=== PATIENT | male | born 1955 | race Caucasian/White ===

== ENCOUNTER 2017-05-06 12:54 | Day surgery (SDC) | payer OTHER ==
[2017-04-28 12:01] VITALS: BMI 21.2
[~2017-05-06 12:54] MED LIST: DEXAMETHASONE SOD PHOSPHATE 10 MG/ML 1 ML VIAL IV ONE; LIDOCAINE 1% 20 ML VIAL (10MG/ML) FOR IV START INTRADERMA PRN; MIDAZOLAM 2 MG/2 ML VIAL IV PRN; ONDANSETRON 4 MG/2 ML VIAL IVP ONE; ceFAZolin IN SWFI 2 GM/20 ML SYRINGE IVP ONE
[2017-05-06] MEDS: LACTATED RINGERS 1,000 ML IV SCH (13:03)
[2017-05-06 13:23] LABS: Basophils % (A) 1 %; Eosinophils # (A) 0.3 k/uL (0-0.7); Eosinophils % (A) 3 %; HCT 50.6 % (39.0-53.0); HGB 16.6 gm/dL (13.0-17.5); Lymphocytes # (A) 1.9 k/uL (1.0-4.8); Lymphocytes % (A) 23 %; MCH 33.5 pg (25.0-35.0); MCHC 32.8 g/dL (31.0-37.0); MCV 102.1 fL (80.0-100.0); Mean Platelet Volume 7.2; Monocytes # (A) 0.4 k/uL (0-1.0); Monocytes % (A) 5 %; Neutrophils # (A) 5.5 k/uL (1.3-7.7); Neutrophils % (A) 67 %; Platelet Count 196 k/uL (150-450); RBC 4.96 m/uL (4.30-5.90); RDW 12.3 % (11.5-15.5); WBC 8.2 k/uL (3.8-10.6)
[2017-05-06 13:34] LABS: Anion Gap 9 mmol/L; Blood Urea Nitrogen 14 mg/dL (9-20); Calcium 10.2 mg/dL (8.4-10.2); Carbon Dioxide 30 mmol/L (22-30); Chloride 103 mmol/L (98-107); Glucose 95 mg/dL (74-99); Potassium 4.5 mmol/L (3.5-5.1); Sodium 142 mmol/L (137-145)
[2017-05-06] MEDS ORDERED: PROPOFOL 10 MG/ML 20 ML VIAL IV ONE (13:59)
[2017-05-06] MEDS ORDERED: NEOSTIGMINE 1 MG/ML 10 ML VIAL ONE (13:59)
[2017-05-06] MEDS ORDERED: PHENYLEPHRINE-0.9% NACL SYG 1 MG/10 ML SYRINGE ONE (13:59)
[2017-05-06] MEDS ORDERED: fentaNYL (PF) 50 MCG/ML 2 ML AMP ONE (13:59)
[2017-05-06] MEDS ORDERED: MIDAZOLAM 2 MG/2 ML VIAL ONE (13:59)
[2017-05-06] MEDS ORDERED: GLYCOPYRROLATE 0.2 MG/ML 2 ML VIAL ONE (13:59)
[2017-05-06] MEDS ORDERED: LIDOCAINE 1% INJ 10MG/ML (20 ML MDV) ONE (13:59)
[2017-05-06] MEDS ORDERED: KETOROLAC 30 MG/ML 1 ML VIAL ONE (13:59)
[2017-05-06] MEDS ORDERED: ROCURONIUM BROMIDE 10 MG/ML 10 ML VIAL IV ONE (13:59)
[2017-05-06] MEDS ORDERED: SUCCINYLCHOLINE CHLORIDE 100 MG/5 ML SYR IV ONE (13:59)
[2017-05-06] MEDS ORDERED: BUPIVACAINE (PF) 0.25% 30 ML VIAL SQ ONE (14:24)
[2017-05-06] MEDS ORDERED: LACTATED RINGERS 1,000 ML IV ONE (15:52)
[2017-05-06 16:18] VITALS: TEMP 96.9
[2017-05-06] MEDS: HYDROmorphone 0.5 MG/0.5 ML SYRINGE IVP PRN ×4 (16:24→16:41)
[2017-05-06 17:16] VITALS: RESP 16
[2017-05-06] MEDS ORDERED: HYDROcodone/APAP 7.5-325MG 1 EACH TAB PO ONE (17:20)
[2017-05-06 17:42] VITALS: BP 125/80; PULSE 78
--- NOTE | 2017-05-06 21:37 | OP ---
OPERATIVE REPORT DATE OF SERVICE: 05/06/17 PREOP DIAGNOSIS: Bilateral inguinal hernia. POSTOP: Bilateral direct inguinal hernia. PROCEDURE: Bilateral inguinal herniorrhaphy, robotic. ANESTHESIA: General. BLOOD LOSS: Minimal. COMPLICATIONS: None. SPECIMEN: None. GROSS FINDINGS: The patient is a 61-year-old man presents for repair of symptomatic inguinal hernias. He is taken to the OR, where he was prepped and draped in the usual sterile manner under general endotracheal anesthetic. A supraumbilical incision was made. Veress needle was placed into the abdominal cavity. Pneumoperitoneum was established with CO2 gas. Sites were chosen for accessary trocars and these were placed through small stab incisions. The abdominal pelvic contents were examined with findings of bilateral direct inguinal hernias. He also had sigmoid diverticulosis. Otherwise the liver, diaphragm large and small-bowel were where they were seen. Starting on the left side the peritoneum overlying the inguinal canal was opened sharply with scissors. Small bleeding points were controlled with electrocautery. The peritoneum was then dissected free off the inguinal canal using blunt dissection. Small bleeding points were controlled with electrocautery. Dissection was carried off the inferior epigastric vessels and it was proceeded medially. There was a direct hernia sac which is dissected free and reduced. The peritoneum was dissected off the cord and cord structures to well beyond the bifurcation. The procedure was completed in a similar manner on the right side. A mesh was then placed into the abdominal cavity and was unfurled so it gave good coverage of all potential hernia defect areas. Once it was adequately positioned, and was adhering well, the peritoneum was closed with B-loc suture. There was a small peritoneal rent on the right side. The peritoneum was very thin. The hernia sac was sutured over top of this with 3-0 Vicryl to cover the peritoneal defect from potential encounter with the bowel. The pneumoperitoneum was then released. The trocars were removed. The fascia at the umbilicus was closed with 0-Vicryl. The skin incisions were closed with 4-0 Vicryl in a subcuticular manner. Steri-Strips and dressings were applied. He tolerated the procedure without difficulty and was taken recovery room in satisfactory condition. According to OR personnel. All counts were correct. DISCHARGE FOLLOW UP: He will be discharged home with a regular diet. Given a prescription for Vicodin for pain 5/325, #30, 1-2 every 6 as needed. Follow up with Dr. Moy in the office in 2 weeks. MMODL / IJN: [id number] /
== END 2017-05-06 17:57 | disposition home or self-care (01) ==
LOC: OR 12:54
PROVIDERS: ATTEND Surgery
DX: K40.20 Bilateral inguinal hernia, without obstruction or gangrene, not specified as recurrent (principal); D12.6 Benign neoplasm of colon, unspecified; J44.9 Chronic obstructive pulmonary disease, unspecified; F03.90 Unspecified dementia, unspecified severity, without behavioral disturbance, psychotic disturbance, mood disturbance, and anxiety; M41.9 Scoliosis, unspecified; Z80.9 Family history of malignant neoplasm, unspecified; F17.210 Nicotine dependence, cigarettes, uncomplicated; Z79.899 Other long term (current) drug therapy
CPT/HCPCS: 93005; 80048; 85025; 49650; C1781; J2250; J1100; J2710; J2405; J2001; J3010; J1885; J2370; J0330; J2704; J1170; J0690

== ENCOUNTER 2019-01-19 11:08 | Emergency (ER) | payer OTHER ==
[2019-01-19 11:36] VITALS: RESP 18; TEMP 97.9
--- NOTE | 2019-01-19 12:23 | ED ---
General Adult HPI - General Chief complaint: Skin/Abscess/Foreign Body Stated complaint: facial swelling/rectal bleeding Time Seen by Provider: 01/19/19 11:39 Source: patient, RN notes reviewed, old records reviewed Mode of arrival: ambulatory Limitations: no limitations - History of Present Illness Initial comments: Patient's a 63-year-old male presents emergency department today with 1 month of diffuse rash over his entire body. Reportedly was sitting primary care doctor, was prescribed cream. Patient reports the rash is not getting any better. They were told that it's psoriasis. Patient reports it is pruritic as thickened skin. Patient reports he describes of the skin and has caused bleeding. Patient states that he's also had some bilateral lower extremity swelling, complains of chronic shortness of breath with history history of COPD. Denies any specific chest pains. He denies any pain at all besides his skin itching and hurting. He states that he has now had a broken skin over his buttocks. - Related Data Home Medications Medication Instructions Recorded Confirmed Ibuprofen [Motrin] 800 mg PO TID PRN 04/02/17 01/19/19 Previous Rx's Medication Instructions Recorded HYDROcodone/APAP 5-325MG [[place] 1 - 2 tab PO Q4H PRN #30 tab 05/06/17 5-325] Albuterol Inhaler [Ventolin Hfa 1 - 2 puff INHALATION RT-Q6H PRN 01/19/19 Inhaler] #1 inhaler Cephalexin [Keflex] 500 mg PO Q6HR #28 cap 01/19/19 Hydrocortisone Cream 1 applic TOPICAL QID #60 gm 01/19/19 [Hydrocortisone 1% Cream] predniSONE 10 mg PO DAILY #15 tab 01/19/19 Allergies Allergy/AdvReac Type Severity Reaction Status Date / Time No Known Allergies Allergy Verified 01/19/19 11:54 Review of Systems ROS Statement: Those systems with pertinent positive or pertinent negative responses have been documented in the HPI. ROS Other: All systems not noted in ROS Statement are negative. Past Medical History Past Medical History: COPD, Memory Impairment, Osteoarthritis (OA) Additional Past Medical History / Comment(s): BILAT GROIN HERNIA. SCOLIOSIS History of Any Multi-Drug Resistant Organisms: None Reported Additional Past Surgical History / Comment(s): THYROID NODULES REMOVED; COLONOSCOPY Past Anesthesia/Blood Transfusion Reactions: No Reported Reaction Past Psychological History: Depression Smoking Status: Current every day smoker Past Alcohol Use History: Daily, Heavy Past Drug Use History: None Reported - Past Family History Mother Family Medical History: Cancer General Exam - General Exam Comments Initial Comments: 63 year old male, no distress. Limitations: no limitations General appearance: alert, in no apparent distress Head exam: Present: atraumatic, normocephalic, normal inspection Eye exam: Present: normal appearance, PERRL, EOMI. Absent: scleral icterus, conjunctival injection, periorbital swelling Neck exam: Present: normal inspection. Absent: tenderness, meningismus, lymphadenopathy Respiratory exam: Present: normal lung sounds bilaterally. Absent: respiratory distress, wheezes, rales, rhonchi, stridor Cardiovascular Exam: Present: regular rate, normal rhythm, normal heart sounds. Absent: systolic murmur, diastolic murmur, rubs, gallop, clicks GI/Abdominal exam: Present: soft, normal bowel sounds. Absent: distended, tenderness, guarding, rebound, rigid Extremities exam: Present: normal inspection, full ROM, normal capillary refill, other (rash over legs and arms. 1 plus pitting edema bilaterally. ). Absent: tenderness, pedal edema, joint swelling, calf tenderness Back exam: Present: normal inspection Neurological exam: Present: alert, oriented X3, CN II-XII intact Psychiatric exam: Present: normal affect, normal mood Skin exam: Present: warm, dry, intact, normal color, rash (erythematous raised scale like rash over body. Severe eczema. ) Course Vital Signs 01/19/19 01/19/19 11:32 13:46 Temperature 97.9 F Pulse Rate 74 81 Respiratory 18 18 Rate Blood Pressure 123/67 142/80 O2 Sat by Pulse 91 L 95 Oximetry Medical Decision Making - Medical Decision Making 63 year old male presents with diffuse rash for one month over entire body. Patient skin is cracked, thickened, scaley, and appears to have diffuse atopic dermatiits. Some excoriations are noted, with likely overliying cellulitis. PAtient has not been on oral mediication form PCP at this time. Family is concerned for general health and reports he appears weak. Patient was given IV and labs obtaind. Labs are normal. paitent advised patient can be started on steriods, and keflex to vonver for overlying cellulitis. Patient advised to follow up with PCP. Family reports that they wantto follow up with infectious dissease Dr. Espinoza, but need a referral. - Lab Data Result diagrams: 01/19/19 12:14 01/19/19 12:14 Lab Results 01/19/19 01/19/19 01/19/19 Range/Units 12:14 12:14 12:14 WBC 7.8 (3.8-10.6) k/uL RBC 3.94 L (4.30-5.90) m/uL Hgb 14.5 (13.0-17.5) gm/dL Hct 43.1 (39.0-53.0) % MCV 109.4 H (80.0-100.0) fL MCH 36.9 H (25.0-35.0) pg MCHC 33.8 (31.0-37.0) g/dL RDW 12.2 (11.5-15.5) % Plt Count 191 (150-450) k/uL Neutrophils % 79 % Lymphocytes % 8 % Monocytes % 6 % Eosinophils % 4 % Basophils % 1 % Neutrophils # 6.2 (1.3-7.7) k/uL Lymphocytes # 0.7 L (1.0-4.8) k/uL Monocytes # 0.4 (0-1.0) k/uL Eosinophils # 0.3 (0-0.7) k/uL Basophils # 0.1 (0-0.2) k/uL Macrocytosis Moderate PT (9.0-12.0) sec INR (<1.2) APTT (22.0-30.0) sec Sodium 138 (137-145) mmol/L Potassium 4.7 (3.5-5.1) mmol/L Chloride 103 (98-107) mmol/L Carbon Dioxide 27 (22-30) mmol/L Anion Gap 8 mmol/L BUN 12 (9-20) mg/dL Creatinine 0.90 (0.66-1.25) mg/dL Est GFR (CKD-EPI)AfAm >90 (>60 ml/min/1.73 sqM) Est GFR (CKD-EPI)NonAf 90 (>60 ml/min/1.73 sqM) Glucose 66 L (74-99) mg/dL Calcium 9.3 (8.4-10.2) mg/dL Total Bilirubin 0.5 (0.2-1.3) mg/dL AST 48 (17-59) U/L ALT 32 (21-72) U/L Alkaline Phosphatase 76 (38-126) U/L NT-Pro-B Natriuret Pep 1090 pg/mL Total Protein 8.0 (6.3-8.2) g/dL Albumin 3.9 (3.5-5.0) g/dL Urine Color Urine Appearance (Clear) Urine pH (5.0-8.0) Ur Specific [place] (1.001-1.035) Urine Protein (Negative) Urine Glucose (UA) (Negative) Urine Ketones (Negative) Urine Blood (Negative) Urine Nitrite (Negative) Urine Bilirubin (Negative) Urine Urobilinogen (<2.0) mg/dL Ur Leukocyte Esterase (Negative) 01/19/19 01/19/19 Range/Units 12:50 13:09 WBC (3.8-10.6) k/uL RBC (4.30-5.90) m/uL Hgb (13.0-17.5) gm/dL Hct (39.0-53.0) % MCV (80.0-100.0) fL MCH (25.0-35.0) pg MCHC (31.0-37.0) g/dL RDW (11.5-15.5) % Plt Count (150-450) k/uL Neutrophils % % Lymphocytes % % Monocytes % % Eosinophils % % Basophils % % Neutrophils # (1.3-7.7) k/uL Lymphocytes # (1.0-4.8) k/uL Monocytes # (0-1.0) k/uL Eosinophils # (0-0.7) k/uL Basophils # (0-0.2) k/uL Macrocytosis PT 10.2 (9.0-12.0) sec INR 0.9 (<1.2) APTT 24.4 (22.0-30.0) sec Sodium (137-145) mmol/L Potassium (3.5-5.1) mmol/L Chloride (98-107) mmol/L Carbon Dioxide (22-30) mmol/L Anion Gap mmol/L BUN (9-20) mg/dL Creatinine (0.66-1.25) mg/dL Est GFR (CKD-EPI)AfAm (>60 ml/min/1.73 sqM) Est GFR (CKD-EPI)NonAf (>60 ml/min/1.73 sqM) Glucose (74-99) mg/dL Calcium (8.4-10.2) mg/dL Total Bilirubin (0.2-1.3) mg/dL AST (17-59) U/L ALT (21-72) U/L Alkaline Phosphatase (38-126) U/L NT-Pro-B Natriuret Pep pg/mL Total Protein (6.3-8.2) g/dL Albumin (3.5-5.0) g/dL Urine Color Light Yellow Urine Appearance Clear (Clear) Urine pH 5.5 (5.0-8.0) Ur Specific [place] 1.009 (1.001-1.035) Urine Protein Negative (Negative) Urine Glucose (UA) Negative (Negative) Urine Ketones 1+ H (Negative) Urine Blood Negative (Negative) Urine Nitrite Negative (Negative) Urine Bilirubin Negative (Negative) Urine Urobilinogen <2.0 (<2.0) mg/dL Ur Leukocyte Esterase Negative (Negative) Disposition Clinical Impression: Dermatitis, Chronic obstructive pulmonary disease (COPD) Disposition: HOME SELF-CARE Condition: Good Instructions (If sedation given, give patient instructions): Dermatitis (ED) Additional Instructions: Patient advised to follow-up with primary care doctor and dermatology. Take the steroids and use the antibiotics and cream as prescribed. Return to emergency department if any alarming signs or symptoms occur. Prescriptions: Hydrocortisone Cream [Hydrocortisone 1% Cream] 1 applic TOPICAL QID #60 gm Cephalexin [Keflex] 500 mg PO Q6HR #28 cap predniSONE 10 mg PO DAILY #15 tab Albuterol Inhaler [Ventolin Hfa Inhaler] 1 - 2 puff INHALATION RT-Q6H PRN #1 inhaler PRN Reason: Shortness Of Breath Is patient prescribed a controlled substance at d/c from ED?: No Referrals: Mora Villar MD [STAFF PHYSICIAN] - 1-2 days Navin Gilmore MD [Primary Care Provider] - 1-2 days Michael Espinoza MD [STAFF PHYSICIAN] - 1-2 days Time of Disposition: 14:08
[2019-01-19 12:33] LABS: Basophils # (A) 0.1 k/uL (0-0.2); Basophils % (A) 1 %; Eosinophils # (A) 0.3 k/uL (0-0.7); Eosinophils % (A) 4 %; HCT 43.1 % (39.0-53.0); HGB 14.5 gm/dL (13.0-17.5); Lymphocytes # (A) 0.7 k/uL (1.0-4.8); Lymphocytes % (A) 8 %; MCH 36.9 pg (25.0-35.0); MCHC 33.8 g/dL (31.0-37.0); MCV 109.4 fL (80.0-100.0); Macrocytosis Moderate; Mean Platelet Volume 6.6; Monocytes # (A) 0.4 k/uL (0-1.0); Monocytes % (A) 6 %; Neutrophils # (A) 6.2 k/uL (1.3-7.7); Neutrophils % (A) 79 %; Platelet Count 191 k/uL (150-450); RBC 3.94 m/uL (4.30-5.90); RDW 12.2 % (11.5-15.5); WBC 7.8 k/uL (3.8-10.6)
[2019-01-19 12:44] LABS: ALT 32 U/L (21-72); AST 48 U/L (17-59); African American GFR (CKD) >90 (>60 ml/min/1.73 sqM); Albumin 3.9 g/dL (3.5-5.0); Alkaline Phosphatase 76 U/L (38-126); Anion Gap 8 mmol/L; Blood Urea Nitrogen 12 mg/dL (9-20); Calcium 9.3 mg/dL (8.4-10.2); Carbon Dioxide 27 mmol/L (22-30); Chloride 103 mmol/L (98-107); Glucose 66 mg/dL (74-99); Potassium 4.7 mmol/L (3.5-5.1); Sodium 138 mmol/L (137-145); Total Bilirubin 0.5 mg/dL (0.2-1.3)
--- NOTE | 2019-01-19 12:51 | XR ---
EXAMINATION TYPE: XR chest 2V DATE OF EXAM: 01/19/2019 COMPARISON: Chest x-ray December 20, 2011. HISTORY: History of COPD with shortness of breath TECHNIQUE: Frontal and lateral views of the chest are obtained. FINDINGS: There is chronic parenchymal change without suspicious focal air space opacity, pleural ef fusion, or pneumothorax seen. The cardiac silhouette size is within normal limits. Underlying Scoli osis is redemonstrated. IMPRESSION: Chronic changes without acute pulmonary process.
[2019-01-19] MEDS ORDERED: methylPREDNISolone SOD SUCCI 125 MG/2 ML VIAL IV STA (13:03)
[2019-01-19 13:17] LABS: INR 0.9 (<1.2); Partial Thromboplastin Time 24.4 sec (22.0-30.0); Prothrombin Time 10.2 sec (9.0-12.0)
[2019-01-19 13:27] LABS: Appearance,Urine Clear (Clear); Bilirubin,Urine Negative (Negative); Blood,Urine Negative (Negative); Color,Urine Light Yellow; Glucose,Urine (UA) Negative (Negative); Ketones,Urine 1+ (Negative); Leukocyte Esterase,Urine Negative (Negative); Nitrite,Urine Negative (Negative); PH, Urine 5.5 (5.0-8.0); Protein,Urine Negative (Negative); Specific Gravity,Urine 1.009 (1.001-1.035); Urobilinogen,Urine <2.0 mg/dL (<2.0)
[2019-01-19 13:47] VITALS: BP 142/80; PULSE 81
[2019-01-19] MEDS ORDERED: CEPHALEXIN 500MG STARTER PACK 4 CAP BTL PO STA (14:20)
== END 2019-01-19 15:02 | disposition home or self-care (01) ==
LOC: EC 11:08
DX: J44.9 Chronic obstructive pulmonary disease, unspecified (principal); L30.9 Dermatitis, unspecified; R53.1 Weakness; R60.0 Localized edema; M19.90 Unspecified osteoarthritis, unspecified site; F17.200 Nicotine dependence, unspecified, uncomplicated; Z79.1 Long term (current) use of non-steroidal anti-inflammatories (NSAID)
CPT/HCPCS: 36415; 83880; 80053; 85025; 85610; 85730; 81003; 71046; 99285; 96374; J2930

== ENCOUNTER 2019-02-28 13:17 | Emergency (ER) | payer OTHER ==
[2019-02-28] MEDS ORDERED: IPRATROPIUM-ALBUTEROL 3 ML NEB INHALATION STA (13:57)
[2019-02-28 14:28] LABS: Basophils % (A) 0 %; Eosinophils # (A) 0.2 k/uL (0-0.7); Eosinophils % (A) 3 %; HCT 47.6 % (39.0-53.0); HGB 15.6 gm/dL (13.0-17.5); Lymphocytes # (A) 1.1 k/uL (1.0-4.8); Lymphocytes % (A) 14 %; MCHC 32.8 g/dL (31.0-37.0); MCV 106.7 fL (80.0-100.0); Macrocytosis Slight; Mean Platelet Volume 6.7; Monocytes # (A) 0.5 k/uL (0-1.0); Monocytes % (A) 6 %; Neutrophils # (A) 5.7 k/uL (1.3-7.7); Neutrophils % (A) 74 %; Platelet Count 195 k/uL (150-450); RBC 4.46 m/uL (4.30-5.90); RDW 12.1 % (11.5-15.5); WBC 7.7 k/uL (3.8-10.6)
[2019-02-28 14:38] LABS: ALT 37 U/L (21-72); AST 60 U/L (17-59); African American GFR (CKD) >90 (>60 ml/min/1.73 sqM); Albumin 3.7 g/dL (3.5-5.0); Alkaline Phosphatase 79 U/L (38-126); Anion Gap 11 mmol/L; Blood Urea Nitrogen 13 mg/dL (9-20); Calcium 8.9 mg/dL (8.4-10.2); Carbon Dioxide 23 mmol/L (22-30); Chloride 105 mmol/L (98-107); Glucose 59 mg/dL (74-99); Magnesium 1.7 mg/dL (1.6-2.3); Non-African American GFR(CKD) >90 (>60 ml/min/1.73 sqM); Potassium 4.9 mmol/L (3.5-5.1); Sodium 139 mmol/L (137-145); Total Bilirubin 0.7 mg/dL (0.2-1.3); Total Protein 6.8 g/dL (6.3-8.2)
--- NOTE | 2019-02-28 15:00 | XR ---
EXAMINATION TYPE: XR chest 2V DATE OF EXAM: 02/28/2019 COMPARISON: Chest x-ray January 19, 2019. HISTORY: Weakness and shortness of breath. TECHNIQUE: Frontal and lateral views of the chest are obtained. FINDINGS: There is chronic parenchymal changes bilaterally without suspicious focal air space opacity, pleural effusion, or pneumothorax seen. The cardiac silhouette size is stab le and mildly enlarged. Underlying levoconvex scoliosis centered upper lumbar spine is partially imag ed. IMPRESSION: Chronic changes and mild cardiomegaly without acute pulmonary process.
--- NOTE | 2019-02-28 15:33 | ED ---
Weakness HPI - General Chief complaint: Weakness Stated complaint: weakness, cant ambulate Time Seen by Provider: 02/28/19 13:34 Source: patient, RN notes reviewed Mode of arrival: ambulatory Limitations: no limitations - History of Present Illness Initial comments: This a 63-year-old male presents emergency Department with multiple complaints. Patient states he is having worsening extremity swelling so she was lower extremities and upper extremities. Patient states his legs are so tight that he can't walk. Patient states that he fell yesterday from this. He states is not focally weak he just states that the to swollen to ambulate. Patient states also having increasing dyspnea he states that he does have COPD. Patient states that he's having a slight productive cough no fevers or chills. Denies any current chest pain is has mild chest tightness. Patient does admit he is an alcoholic. Patient states that he also has severe dermatitis in which she's been treated by guitar instructor. He was recently at the hospital for steroids he's had to help but states his symptoms are worsening again. Patient denies any dysuria hematuria. Patient states that he has very poor nutritional status. Family states that the currently is living situation with no heat states that his living conditions terrible and that his overall health is declining - Related Data Home Medications Medication Instructions Recorded Confirmed Ibuprofen [Motrin] 800 mg PO TID PRN 04/02/17 01/19/19 Previous Rx's Medication Instructions Recorded HYDROcodone/APAP 5-325MG [[place] 1 - 2 tab PO Q4H PRN #30 tab 05/06/17 5-325] Albuterol Inhaler [Ventolin Hfa 1 - 2 puff INHALATION RT-Q6H PRN 01/19/19 Inhaler] #1 inhaler Cephalexin [Keflex] 500 mg PO Q6HR #28 cap 01/19/19 Hydrocortisone Cream 1 applic TOPICAL QID #60 gm 01/19/19 [Hydrocortisone 1% Cream] predniSONE 10 mg PO DAILY #15 tab 01/19/19 Azithromycin [Zithromax Z-pack] 0 mg PO DIRECTED #1 pack 02/28/19 Furosemide [Lasix] 20 mg PO DAILY #5 tab 02/28/19 predniSONE 50 mg PO DAILY #5 tab 02/28/19 Allergies Allergy/AdvReac Type Severity Reaction Status Date / Time No Known Allergies Allergy Verified 02/28/19 13:19 Review of Systems ROS Statement: Those systems with pertinent positive or pertinent negative responses have been documented in the HPI. ROS Other: All systems not noted in ROS Statement are negative. Past Medical History Past Medical History: COPD, Memory Impairment, Osteoarthritis (OA) Additional Past Medical History / Comment(s): BILAT GROIN HERNIA. SCOLIOSIS History of Any Multi-Drug Resistant Organisms: None Reported Additional Past Surgical History / Comment(s): THYROID NODULES REMOVED; COLONOSCOPY Past Anesthesia/Blood Transfusion Reactions: No Reported Reaction Past Psychological History: Depression Smoking Status: Current every day smoker Past Alcohol Use History: Daily, Heavy Past Drug Use History: None Reported - Past Family History Mother Family Medical History: Cancer General Exam Limitations: no limitations General appearance: alert, in no apparent distress Head exam: Present: atraumatic, normocephalic, normal inspection Eye exam: Present: normal appearance, PERRL, EOMI. Absent: scleral icterus, conjunctival injection, periorbital swelling ENT exam: Present: mucous membranes moist. Absent: normal exam, normal oropharynx (Poor dentition) Neck exam: Present: normal inspection, full ROM. Absent: tenderness, meningismus, lymphadenopathy Respiratory exam: Present: wheezes (Bilateral throughout), decreased breath sounds. Absent: normal lung sounds bilaterally, respiratory distress, rales, rhonchi, stridor Cardiovascular Exam: Present: normal rhythm, tachycardia, normal heart sounds. Absent: systolic murmur, diastolic murmur, rubs, gallop, clicks GI/Abdominal exam: Present: soft, normal bowel sounds. Absent: distended, tenderness, guarding, rebound, rigid Extremities exam: Present: pedal edema (Extensive leg edema with erythema, skin is taut with palpation) Neurological exam: Present: alert, oriented X3, CN II-XII intact, reflexes normal. Absent: motor sensory deficit Skin exam: Present: dry, rash (Diffuse peeling of the skin, open lesions sores diffusely, lower extremity is erythematous.). Absent: normal color Course Vital Signs 02/28/19 02/28/19 02/28/19 13:19 14:40 14:51 Temperature 97.4 F L Pulse Rate 106 H 101 H 104 H Respiratory 18 Rate Blood Pressure 117/69 O2 Sat by Pulse 96 Oximetry EKG Findings - EKG Comments: EKG Findings:: EKG performed at 14:21 cm bradycardia with right bundle rate of 59 [place] 1:30 QRS 114 QT/QTc 444/439 Medical Decision Making - Medical Decision Making Patient's found to have mild hypoglycemia patient was able to tolerate oral intake. Patient does have diffuse body swelling may related to his liver disease, protein deficiency or related to his dermatitis. Patient chest x-ray shows mild COPD changes and otherwise unremarkable. EKG is unchanged. We did contact Dr. Borrero who covers Dr. Gilmore for admission. Dr. Borrero refuses admission for inability to care for himself, difficulty ambulating, anasarca.There is concern as patient only has electric heater at home. Patient has COPD exacerbation, diffuse dermatitis. Patient's having difficulty ambulating. Did explain that family members are trying to obtain new home for patient. Patient will be given steroids and antibiotics at this time. - Lab Data Result diagrams: 02/28/19 14:15 02/28/19 14:15 Lab Results 02/28/19 02/28/19 02/28/19 Range/Units 14:15 14:15 14:15 WBC 7.7 (3.8-10.6) k/uL RBC 4.46 (4.30-5.90) m/uL Hgb 15.6 (13.0-17.5) gm/dL Hct 47.6 (39.0-53.0) % MCV 106.7 H (80.0-100.0) fL MCH 35.0 (25.0-35.0) pg MCHC 32.8 (31.0-37.0) g/dL RDW 12.1 (11.5-15.5) % Plt Count 195 (150-450) k/uL Neutrophils % 74 % Lymphocytes % 14 % Monocytes % 6 % Eosinophils % 3 % Basophils % 0 % Neutrophils # 5.7 (1.3-7.7) k/uL Lymphocytes # 1.1 (1.0-4.8) k/uL Monocytes # 0.5 (0-1.0) k/uL Eosinophils # 0.2 (0-0.7) k/uL Basophils # 0.0 (0-0.2) k/uL Macrocytosis Slight Sodium 139 (137-145) mmol/L Potassium 4.9 (3.5-5.1) mmol/L Chloride 105 (98-107) mmol/L Carbon Dioxide 23 (22-30) mmol/L Anion Gap 11 mmol/L BUN 13 (9-20) mg/dL Creatinine 0.62 L (0.66-1.25) mg/dL Est GFR (CKD-EPI)AfAm >90 (>60 ml/min/1.73 sqM) Est GFR (CKD-EPI)NonAf >90 (>60 ml/min/1.73 sqM) Glucose 59 L (74-99) mg/dL Calcium 8.9 (8.4-10.2) mg/dL Magnesium 1.7 (1.6-2.3) mg/dL Total Bilirubin 0.7 (0.2-1.3) mg/dL AST 60 H (17-59) U/L ALT 37 (21-72) U/L Alkaline Phosphatase 79 (38-126) U/L Troponin I (0.000-0.034) ng/mL NT-Pro-B Natriuret Pep 764 pg/mL Total Protein 6.8 (6.3-8.2) g/dL Albumin 3.7 (3.5-5.0) g/dL Lipase 14 L (23-300) U/L 02/28/19 Range/Units 14:15 WBC (3.8-10.6) k/uL RBC (4.30-5.90) m/uL Hgb (13.0-17.5) gm/dL Hct (39.0-53.0) % MCV (80.0-100.0) fL MCH (25.0-35.0) pg MCHC (31.0-37.0) g/dL RDW (11.5-15.5) % Plt Count (150-450) k/uL Neutrophils % % Lymphocytes % % Monocytes % % Eosinophils % % Basophils % % Neutrophils # (1.3-7.7) k/uL Lymphocytes # (1.0-4.8) k/uL Monocytes # (0-1.0) k/uL Eosinophils # (0-0.7) k/uL Basophils # (0-0.2) k/uL Macrocytosis Sodium (137-145) mmol/L Potassium (3.5-5.1) mmol/L Chloride (98-107) mmol/L Carbon Dioxide (22-30) mmol/L Anion Gap mmol/L BUN (9-20) mg/dL Creatinine (0.66-1.25) mg/dL Est GFR (CKD-EPI)AfAm (>60 ml/min/1.73 sqM) Est GFR (CKD-EPI)NonAf (>60 ml/min/1.73 sqM) Glucose (74-99) mg/dL Calcium (8.4-10.2) mg/dL Magnesium (1.6-2.3) mg/dL Total Bilirubin (0.2-1.3) mg/dL AST (17-59) U/L ALT (21-72) U/L Alkaline Phosphatase (38-126) U/L Troponin I 0.028 (0.000-0.034) ng/mL NT-Pro-B Natriuret Pep pg/mL Total Protein (6.3-8.2) g/dL Albumin (3.5-5.0) g/dL Lipase (23-300) U/L Disposition Clinical Impression: Leg edema, COPD (chronic obstructive pulmonary disease), Dermatitis, Assistance needed for ambulation and movement Disposition: HOME SELF-CARE Condition: Stable Instructions (If sedation given, give patient instructions): COPD (Chronic Obstructive Pulmonary Disease) (ED) Additional Instructions: Please return to the Emergency Department if symptoms worsen or any other conc erns. Prescriptions: Furosemide [Lasix] 20 mg PO DAILY #5 tab predniSONE 50 mg PO DAILY #5 tab Azithromycin [Zithromax Z-pack] 0 mg PO DIRECTED #1 pack Is patient prescribed a controlled substance at d/c from ED?: No Referrals: Navin Gilmore MD [Primary Care Provider] - 1-2 days Time of Disposition: 16:51
[2019-02-28] MEDS ORDERED: FUROSEMIDE 10 MG/ML 4 ML VIAL IV STA (16:44)
[2019-02-28] MEDS ORDERED: methylPREDNISolone SOD SUCCI 125 MG/2 ML VIAL IV STA (16:45)
[2019-02-28 16:59] LABS: Appearance,Urine Clear (Clear); Bilirubin,Urine Negative (Negative); Blood,Urine Negative (Negative); Color,Urine Yellow; Glucose,Urine (UA) Negative (Negative); Ketones,Urine 1+ (Negative); Leukocyte Esterase,Urine Negative (Negative); Nitrite,Urine Negative (Negative); PH, Urine 5.5 (5.0-8.0); Protein,Urine Trace (Negative); Specific Gravity,Urine 1.024 (1.001-1.035)
[2019-02-28 17:14] VITALS: BP 108/81; RESP 20; TEMP 98.6
[2019-02-28 17:27] VITALS: PULSE 84
== END 2019-02-28 17:29 | disposition home or self-care (01) ==
LOC: EC 13:17
DX: J44.9 Chronic obstructive pulmonary disease, unspecified (principal); L30.9 Dermatitis, unspecified; R60.0 Localized edema; Z74.1 Need for assistance with personal care; F17.200 Nicotine dependence, unspecified, uncomplicated
CPT/HCPCS: 36415; 94640; 93005; 83880; 80053; 83690; 83735; 84484; 85025; 81003; 71046; 99285; 96374; 96375; J1940; J2930